=== PATIENT | female | born 1970 | race Caucasian/White ===

== ENCOUNTER 2017-10-10 10:47 | Day surgery (SDC) | payer MEDICAID ==
[~2017-10-10 10:47] MED LIST: Lactated Ringers 1,000 ML IV SCH
[2017-10-10] MEDS ORDERED: Propofol 200 MG/20 ML SDV ONE (11:13)
[2017-10-10] MEDS ORDERED: Midazolam 1 MG/ML 2 ML SDV ONE (11:13)
[2017-10-10] MEDS ORDERED: fentaNYL 100 MCG/2 ML SDV ONE (11:13)
[2017-10-10] MEDS ORDERED: Lidocaine 4% 5 ML Amp ONE (11:15)
--- NOTE | 2017-10-10 20:09 | OR ---
PREOPERATIVE DIAGNOSES: Epigastric pain and chronic reflux symptoms. POSTOPERATIVE DIAGNOSES: Epigastric pain and chronic reflux symptoms. PROCEDURE PERFORMED: EGD with antral biopsy. INDICATIONS: The patient is a 47-year-old female with history of ongoing reflux sounding symptoms for last few months, not well treated with Prilosec and presents for EGD for further evaluation. PROCEDURE IN DETAIL: Procedures was done in the procedure room. Sedation was given per Anesthesia. The scope was introduced into the pharynx across the esophagus into the stomach across the pylorus into the first and second portion of duodenum. First and second portion of duodenum were normal. Scope was slowly withdrawn. Two biopsies were taken from the antrum for H pylori and pathology. Scope was retroflexed. GE junction looked normal. Scope was withdrawn. Lower esophagus with normal. No real evidence of any reflux. The remaining esophagus looks normal. FINAL DIAGNOSIS: Normal endoscopy. Biopsies taken for H pylori. I will recheck her in the office 2 weeks' time. BKD: 10/10/2017 12:39:52 MODL: 10/10/2017 20:02:25 /[id number]
== END 2017-10-10 13:37 | disposition home or self-care (01) ==
LOC: VM.SDS 10:47
PROVIDERS: ATTEND Surgery
DX: R10.13 Epigastric pain (principal); K21.9 Gastro-esophageal reflux disease without esophagitis; K31.9 Disease of stomach and duodenum, unspecified; I10 Essential (primary) hypertension; J45.20 Mild intermittent asthma, uncomplicated; E66.9 Obesity, unspecified; Z68.37 Body mass index [BMI] 37.0-37.9, adult; F41.9 Anxiety disorder, unspecified; F32.9 Major depressive disorder, single episode, unspecified; E78.5 Hyperlipidemia, unspecified; M79.7 Fibromyalgia; N39.46 Mixed incontinence; E03.9 Hypothyroidism, unspecified; G47.30 Sleep apnea, unspecified; Z79.899 Other long term (current) drug therapy; Z88.5 Allergy status to narcotic agent; Z88.0 Allergy status to penicillin; Z88.8 Allergy status to other drugs, medicaments and biological substances; Z91.041 Radiographic dye allergy status
CPT/HCPCS: 43239; J2250; J2704; J3010; J7120

== ENCOUNTER 2020-11-08 00:41 | Emergency (ER) | payer MEDICAID, OTHER ==
[2020-11-08] MEDS: Ibuprofen 200 MG Tab PO ONE (01:10)
--- NOTE | 2020-11-08 01:31 | EDM.PDOC ---
ED HPI GENERAL MEDICAL PROBLEM - General Chief Complaint: Upper Extremity Injury/Pain Stated Complaint: Left Arm Pain Time Seen by Provider: 11/08/20 00:43 Source of Information: Reports: Patient History Limitations: Reports: No Limitations - History of Present Illness INITIAL COMMENTS - FREE TEXT/NARRATIVE: Pt. presents to ER with complaints of injury to R wrist. Pt. 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 Pt. denies any upper arm/shoulder injury. Pt. denies striking her head. Denies any neck pain. No numbness/tingling in the fingers of the R hand. Denies any digit pain. Minimal pain over metacarpal bones. Onset: Today Onset Date: 11/08/20 Location: Reports: Upper Extremity, Right Quality: Reports: Ache, Throbbing Severity: Moderate Improves with: Reports: Rest Worsens with: Reports: Movement Left Wrist and Forearm Pain Score (Numeric/FACES): 7 - Related Data Allergies Allergy/AdvReac Type Severity Reaction Status Date / Time hydrocodone Allergy Hives Verified 10/10/17 11:12 Penicillins Allergy Hives Verified 10/10/17 11:12 pregabalin [From Lyrica] Allergy Other Verified 10/10/17 11:12 sigalia Allergy Nausea and Uncoded 10/10/17 11:12 Vomiting Home Meds: Home Meds Cyclobenzaprine [Flexeril] 10 mg PO DAILY PRN 12/19/13 [History] Metoprolol Succinate [Toprol XL 100mg] 150 mg PO DAILY 12/19/13 [History] Albuterol Sulfate [Proair Respiclick] 90 mcg IH Q6H PRN 10/07/17 [History] Furosemide 1 tab PO DAILY 10/07/17 [History] Gabapentin [Neurontin] 100 mg PO TID 10/07/17 [History] Levothyroxine Sodium [Levo-T] 50 mcg PO DAILY 10/07/17 [History] Losartan [Cozaar] 1 tab PO DAILY 10/07/17 [History] NIFEdipine [Nifedipine ER] 2 tab PO DAILY 10/07/17 [History] Omeprazole Magnesium [Prilosec Otc] 40 mg PO DAILY 10/07/17 [History] Past Medical History HEENT History: Reports: Allergic Rhinitis Cardiovascular History: Reports: High Cholesterol, Hypertension Respiratory History: Reports: Asthma, Sleep Apnea Gastrointestinal History: Reports: GERD Genitourinary History: Reports: Urinary Incontinence Musculoskeletal History: Reports: Fibromyalgia Neurological History: Reports: None Psychiatric History: Reports: Anxiety, Depression Endocrine/Metabolic History: Reports: Hypothyroidism, Obesity/BMI 30+ Hematologic History: Reports: None Immunologic History: Reports: None Oncologic (Cancer) History: Reports: None Dermatologic History: Reports: None - Past Surgical History Head Surgeries/Procedures: Reports: None HEENT Surgical History: Reports: None Cardiovascular Surgical History: Reports: None GI Surgical History: Reports: Appendectomy, Cholecystectomy Neurological Surgical History: Reports: None Musculoskeletal Surgical History: Reports: Arthroscopic Knee Review of Systems - Review of Systems Review Of Systems: Comprehensive ROS is negative, except as noted in HPI. ED EXAM, GENERAL - Physical Exam Exam: See Below Exam Limited By: No Limitations General Appearance: Alert, WD/WN, No Apparent Distress Extremities: Other (edema/hematoma over R dorsal wrist. No obvious crepitus or deformity noted. ) Neurological: Alert, Oriented, CN II-XII Intact, Normal Cognition, Normal Reflexes Course - Vital Signs Last Recorded V/S: Last Vital Signs Temp 36.5 C 11/08/20 00:43 Pulse 91 11/08/20 00:43 Resp 14 11/08/20 00:43 BP 202/97 H 11/08/20 00:43 Pulse Ox 98 11/08/20 00:43 - Orders/Labs/Meds Meds: Medications Discontinued Medications Generic Name Dose Route Start Last Admin Trade Name Freq PRN Reason Stop Dose Admin Ibuprofen 800 mg 11/08/20 01:05 11/08/20 01:10 Ibuprofen 200 Mg Tab PO 11/08/20 01:06 800 mg ONETIME ONE Administration - Radiology Interpretation Free Text/Narrative:: radiographs of pt. forearm and wrist were obtained. No obvious fracture or other pathology noted. Departure - Departure Time of Disposition: 02:19 Disposition: Home, Self-Care 01 Clinical Impression: Wrist sprain - Discharge Information Instructions: Wrist Sprain, Adult Referrals: Ari Woods NP [Primary Care Provider] - Forms: ED Department Discharge Additional Instructions: Home to rest. Off work tomorrow if needed to due pain. Use the JORGITO wrap to provide support/decrease swelling. Ice wrist for 10-15 min every hour. Ibuprofen 200mg 3 tabs every 6 hours as needed for pain. Sepsis Event Note (ED) - Evaluation Sepsis Screening Result: No Definite Risk - Problem List Review Problem List Initiated/Reviewed/Updated: Yes - Assessment/Plan Plan: Home to rest. Off work tomorrow if needed to due pain. Use the JORGITO wrap to provide support/decrease swelling. Ice wrist for 10-15 min every hour. Ibuprofen 200mg 3 tabs every 6 hours as needed for pain.
--- NOTE | 2020-11-08 09:27 | CR ---
[id number] RAD/RAD Forearm Right 2V; [id number] RAD/RAD Wrist Right 3V Min EXAM: RAD Forearm Right 2V, RAD Wrist Right 3V Min INDICATION: FELL ON OUTSTRETCHED RIGHT HAND. COMPARISON: None. DISCUSSION: Soft tissue swelling in the dorsum of the wrist and proximal forearm. No acute fracture or dislocation is identified. Moderate triscaphe and first carpometacarpal osteoarthritis. IMPRESSION: 1. Soft tissue swelling. No acute osseous abnormality. Adrián La MD 11/08/20 0926 Thank you for allowing us to participate in the care of your patient.
== END 2020-11-08 02:19 | disposition home or self-care (01) ==
LOC: VM.ED 00:41 → SUPCPDRO 00:41 → VM.ED 02:19
DX: S63.501A Unspecified sprain of right wrist, initial encounter (principal); I10 Essential (primary) hypertension; J45.909 Unspecified asthma, uncomplicated; K21.9 Gastro-esophageal reflux disease without esophagitis; E03.9 Hypothyroidism, unspecified; E66.9 Obesity, unspecified; Z68.38 Body mass index [BMI] 38.0-38.9, adult; Z88.5 Allergy status to narcotic agent; Z88.0 Allergy status to penicillin; Z88.8 Allergy status to other drugs, medicaments and biological substances; Z79.899 Other long term (current) drug therapy; W10.9XXA Fall (on) (from) unspecified stairs and steps, initial encounter; Y93.01 Activity, walking, marching and hiking
CPT/HCPCS: 73090-RT; 73110-RT; 99283; 99283-25; A9270-GY

== ENCOUNTER 2024-07-26 14:52 | Emergency (ER) | payer BC, OTHER ==
[2024-07-26] MEDS ORDERED: Sodium Chloride 0.9% 10 ML Syringe FLUSH PRN (15:11)
[2024-07-26 15:23] LABS: BASOPHILS PERCENT AUTO 0.3 % (0.2-1.2); EOSINOPHILS ABSOLUTE AUTO 0.2 x10^3/uL (0.0-0.5); EOSINOPHILS PERCENT AUTO 1.7 % (0.0-4.0); HEMATOCRIT 41.5 % (33.0-47.0); HEMOGLOBIN 13.7 g/dL (12.0-16.0); IMMATURE GRAN ABSOLUTE AUTO 0.03 x10^3/uL (0.00-0.07); LYMPHOCYTES ABSOLUTE AUTO 2.2 x10^3/uL (1.0-4.8); LYMPHOCYTES PERCENT AUTO 21.7 % (25.0-50.0); MEAN CORPUSCULAR HEMOGLOBIN 27.5 pg (26.0-32.0); MEAN CORPUSCULAR VOLUME 83.3 fL (78.0-93.0); MONOCYTES ABSOLUTE AUTO 0.7 x10^3/uL (0.0-0.8); MONOCYTES PERCENT AUTO 6.8 % (2.0-11.0); NEUTROPHILS ABSOLUTE AUTO 6.9 x10^3/uL (1.8-7.7); NEUTROPHILS PERCENT AUTO 69.2 % (50.0-80.0); PLATELET COUNT,PLT 365 x10^3/uL (130-400); RED BLOOD CELL COUNT 4.98 x10^6/uL (4.00-5.50)
[2024-07-26 15:43] LABS: LACTIC ACID 1.7 mmol/L (0.4-2.0)
[2024-07-26 15:44] LABS: INR 0.9 (0.9-1.1); PROTHROMBIN TIME 9.3 SEC (9.6-12.0); PTT,PARTIAL THROMBOPLSTIN TIME 30.1 SEC (23.5-33.2)
[2024-07-26 15:49] LABS: A/G RATIO 0.92; ALANINE AMINOTRANSFERASE,ALT 32 U/L (14-59); ALBUMIN 3.5 g/dL (3.4-5.0); ALKALINE PHOSPHATASE 114 U/L (46-116); ASPARTATE AMNIOTRANSFERASE,AST 24 U/L (15-37); BILIRUBIN TOTAL 0.4 mg/dL (0.2-1.0); BLOOD UREA NITROGEN,BUN 18 mg/dL (7-18); C-REACTIVE PROTEIN 1.06 mg/dL (<=0.50); CALCIUM 8.5 mg/dL (8.5-10.1); CARBON DIOXIDE,CO2 27 mmol/L (21-32); CHLORIDE,CL 103 mmol/L (98-107); CREATININE 1.2 mg/dL (0.55-1.02); GLUCOSE RANDOM 120 mg/dL (70-99); MAGNESIUM 2.4 mg/dL (1.8-2.4); POTASSIUM,K 4.1 mmol/L (3.5-5.1); PROTEIN TOTAL,TP 7.3 g/dL (6.4-8.2); SODIUM,NA 140 mmol/L (136-145); TSH ULTRASENSITIVE 6.372 uIU/mL (0.358-3.74)
[2024-07-26 15:52] LABS: ANION GAP 14.1 mmol/L (5-15); ESTIMATED GFR 54 mL/min (>=60)
[2024-07-26] MEDS: Ondansetron 4 MG/2 ML SDV IVPUSH ONE (16:00)
[2024-07-26] MEDS: Iopamidol 755 Mg/ML 100 ML Bottle IVPUSH ONE (16:17)
== END 2024-07-26 17:15 | disposition home or self-care (01) ==
LOC: VM.ED 14:52
DX: R07.89 Other chest pain (principal); I10 Essential (primary) hypertension; J45.909 Unspecified asthma, uncomplicated; E66.9 Obesity, unspecified; E03.9 Hypothyroidism, unspecified; Z88.0 Allergy status to penicillin; Z88.8 Allergy status to other drugs, medicaments and biological substances; Z79.890 Hormone replacement therapy; Z79.899 Other long term (current) drug therapy; Z90.49 Acquired absence of other specified parts of digestive tract
CPT/HCPCS: 71045; 71275; 80053; 83605; 83735; 84443; 84484; 85025; 85379; 85610; 85730; 86140; 93010; 96374; 99284; 99285-25; J2405; Q9967

== ENCOUNTER 2024-08-05 10:26 | Emergency (ER) | payer BC ==
[2024-08-05 10:45] LABS: BASOPHILS PERCENT AUTO 0.2 % (0.2-1.2); EOSINOPHILS PERCENT AUTO 0.2 % (0.0-4.0); HEMATOCRIT 44.2 % (33.0-47.0); HEMOGLOBIN 14.9 g/dL (12.0-16.0); IMMATURE GRAN ABSOLUTE AUTO 0.03 x10^3/uL (0.00-0.07); LYMPHOCYTES ABSOLUTE AUTO 0.4 x10^3/uL (1.0-4.8); LYMPHOCYTES PERCENT AUTO 2.8 % (25.0-50.0); MEAN CORPUSCULAR HGB CONC 33.7 g/dL (32.0-36.0); MEAN CORPUSCULAR VOLUME 82.9 fL (78.0-93.0); MONOCYTES ABSOLUTE AUTO 0.5 x10^3/uL (0.0-0.8); MONOCYTES PERCENT AUTO 3.8 % (2.0-11.0); NEUTROPHILS ABSOLUTE AUTO 12.2 x10^3/uL (1.8-7.7); NEUTROPHILS PERCENT AUTO 92.8 % (50.0-80.0); PLATELET COUNT,PLT 320 x10^3/uL (130-400); RED BLOOD CELL COUNT 5.33 x10^6/uL (4.00-5.50); WHITE BLOOD CELL COUNT,WBC 13.1 x10^3/uL (4.0-10.0)
[2024-08-05 10:59] LABS: A/G RATIO 1.08; ALBUMIN 3.9 g/dL (3.4-5.0); BILIRUBIN TOTAL 0.8 mg/dL (0.2-1.0); CALCIUM 8.1 mg/dL (8.5-10.1); EST CRCL DRUG DOSING (CG) 49.09 mL/min; MAGNESIUM 2.3 mg/dL (1.8-2.4); POTASSIUM,K 3.7 mmol/L (3.5-5.1); PROTEIN TOTAL,TP 7.5 g/dL (6.4-8.2)
[2024-08-05 11:01] LABS: ANION GAP 17.7 mmol/L (5-15)
[2024-08-05] MEDS: Ondansetron 4 MG/2 ML SDV IVPUSH ONE (11:04)
[2024-08-05] MEDS: Lactated Ringers 1,000 ML IV ONE (11:04)
[2024-08-05] MEDS: Iopamidol 612 MG/ML 100 ML Bottle IVPUSH ONE (11:49)
[2024-08-05] MEDS: fentaNYL 50 MCG/ML SDV IVPUSH ONE (12:41)
== END 2024-08-05 12:59 | disposition home or self-care (01) ==
LOC: VM.ED 10:26 → SUPCPDRO 10:26 → VM.ED 12:59
DX: R19.7 Diarrhea, unspecified (principal); I10 Essential (primary) hypertension; E78.00 Pure hypercholesterolemia, unspecified; K21.9 Gastro-esophageal reflux disease without esophagitis; E03.9 Hypothyroidism, unspecified; E66.9 Obesity, unspecified; Z79.899 Other long term (current) drug therapy; Z90.49 Acquired absence of other specified parts of digestive tract; Z88.5 Allergy status to narcotic agent; Z88.0 Allergy status to penicillin; Z88.8 Allergy status to other drugs, medicaments and biological substances; Z68.39 Body mass index [BMI] 39.0-39.9, adult
CPT/HCPCS: 74177; 80053; 83690; 83735; 85025; 87428; 96361; 96374; 96375; 99283; 99284; J2405; J3010; J7120; Q9967